=== PATIENT | female | born 1930 | race Caucasian/White ===

== ENCOUNTER 2017-09-22 19:05 | Inpatient (IN) | payer MEDICARE ==
--- NOTE | 2017-09-22 19:28 | ED Physician Chart ---
ED Chief Complaint/HPI - Patient Information Date Seen:: 09/22/17 Time Seen:: 19:20 Chief Complaint:: poor oral intake History of Present Illness:: Patient's had poor oral intake for the last 2 days. Patient has dementia so no further history is available. Allergies:: Allergies Allergy/AdvReac Type Severity Reaction Status Date / Time No Known Allergies Allergy Verified 09/22/17 19:21 Historian:: Patient, EMS Review:: Transfer documents Reviewed ED Review of Systems - Review of Systems General/Constitutional: No fever, No chills, Loss of appetite Skin: No skin lesions Head: No headache Eyes: No loss of vision, No diplopia ENT: No earache, No nasal drainage, No sore throat Neck: No neck pain, No swelling Cardio Vascular: No chest pain, No palpitations Pulmonary: No SOB GI: No nausea, No vomiting, No diarrhea G/U: No dysuria Musculoskeletal: No bone or joint pain Endocrine: No polyuria, No polydipsia Psychiatric: Prior psych history Hematopoietic: No bruising Allergic/Immuno: No urticaria Neurological: No syncope ED Past Medical History - Past Medical History Past Medical History: Dementia, Other ( status post urinary tract infection) Family History: Other (unavailable) Social History: Care Facility Surgical History: other (unavailable) Psychiatricy History: Bipolar, Dementia, Other (schizoaffective disorder) Medication: Reviewed Family Medical History - Family Member Mother History Unknown: Yes ED Physical Exam - Physical Examination General/Constitutional: Well-developed, well-nourished, Alert, No distress Head: Atraumatic Eyes: Lids, conjuctiva normal Skin: Nl inspection, No rash ENMT: External ears, nose nl, Nasal exam nl Other ENMT comments:: Poor dental hygiene Neck: No nuchal rigidity Respiratory: Nl effort/Exclusion, Clear to Auscultation, No Wheeze/Rhonchi/Rales Cardio Vascular: RRR, No murmur, gallop, rubs, NL S1 S2 GI: No tenderness/rebounding/guarding, No organomegaly, No hernia, Normal BS's : No CVA tenderness Extremities: No tenderness or effusion, Normal digits & nails Neuro/Psych: No focal deficits ED Labs/Radiology/EKG Results - Lab Results Results: Laboratory Results - last 24 hr 09/22/17 09/22/17 19:30 19:30 WBC 5.8 RBC 4.70 Hgb 12.1 Hct 37.7 L MCV 80.3 L MCH 25.7 L MCHC Differential 32.0 RDW 14.1 Plt Count 311 MPV 7.6 Neutrophils % 70.7 Lymphocytes % 22.4 Monocytes % 6.0 Eosinophils % 0.9 Basophils % 0.0 Sodium 138 Potassium 3.8 Chloride 102 Carbon Dioxide 27.1 Anion Gap 12.7 BUN 15 Creatinine 0.7 Est GFR ( Amer) TNP Est GFR (Non-Af Amer) TNP BUN/Creatinine Ratio 21.4 Glucose 104 Calcium 9.4 Magnesium 2.1 - EKG Interpretations Rate & Rhythm: normal sinus rhythm with a rate of 77 [place]: normal axis ED Septic Shock - . Is Septic Shock (SBP<90, OR Lactate>4 mmol\L) present?: No ED Reassessment (Disposition) - Reassessment Reassessment Condition:: Unchanged - Diagnosis Diagnosis:: Anorexia - Patient Disposition Admitted to:: Med/Surg Admitting Medical Physician:: Den Aceves Condition at Disposition:: Stable, Unchanged
[2017-09-22 19:38] LABS: % EOSINOPHILS 0.9 % (0.0-5.0); % LYMPHOCYTES 22.4 % (20.0-50.0); % NEUTROPHILS 70.7 % (40.0-80.0); EOSINOPHILE ABSOLUTE 0.1 Th/cmm (0.1-0.4); HEMATOCRIT 37.7 % (41.0-60); HEMOGLOBIN 12.1 gm/dL (12-16); LYMPHOCYTE ABSOLUTE 1.3 Th/cmm (1.5-3.0); MEAN CELL VOLUME 80.3 fl (81-100); MEAN CORPUSCULAR HEMOGLOBIN 25.7 pg (27.0-31.0); MEAN PLATELET VOLUME 7.6 fl; MONOCYTE ABSOLUTE 0.3 Th/cmm (0.3-1.0); NEUTROPHILE ABSOLUTE 4.1 Th/cmm (1.8-8.0); PLATELET COUNT 311 Th/cmm (150-400); RED CELL DISTRIBUTION WIDTH 14.1 % (11.5-20.0); WHITE BLOOD COUNT 5.8 Th/cmm (4.8-10.8)
[2017-09-22 19:54] LABS: ANION GAP 12.7 (7.0-16.0); BUN - UREA NITROGEN 15 mg/dL (7-25); CALCIUM SERUM 9.4 mg/dL (8.6-10.3); CARBON DIOXIDE 27.1 mEq/L (21.0-31.0); CHLORIDE 102 mEq/L (98-107); CREATININE - SERUM 0.7 mg/dL (0.6-1.2); GLUCOSE 104 mg/dL (70-105); MAGNESIUM 2.1 mg/dL (1.9-2.7); POTASSIUM SERUM 3.8 mEq/L (3.5-5.1); SODIUM SERUM 138 mEq/L (136-145)
[2017-09-22] MEDS: D5-0.45NS 1,000 ML IV SCH (21:30)
[2017-09-22] MEDS ORDERED: Magnesium Hydroxide (MOM) 30 mL UDC PO PRN (21:35)
[2017-09-22] MEDS ORDERED: Ipratropium Neb 0.5 mg/2.5 mL UD IH PRN (21:37)
[2017-09-22] MEDS ORDERED: Albuterol Nebulizer 2.5mg/3mL IH PRN (21:37)
[2017-09-22] MEDS ORDERED: guaiFENesin 200 MG/10 ML UDC PO PRN (21:37)
[2017-09-22] MEDS ORDERED: D5-0.45NS 1,000 ML IV SCH (21:45)
[2017-09-23 05:52] LABS: % BASOPHILS 0.1 % (0.0-2.0); % EOSINOPHILS 1.5 % (0.0-5.0); % LYMPHOCYTES 29.2 % (20.0-50.0); % MONOCYTES 7.8 % (2.0-10.0); % NEUTROPHILS 61.4 % (40.0-80.0); EOSINOPHILE ABSOLUTE 0.1 Th/cmm (0.1-0.4); HEMATOCRIT 35.1 % (41.0-60); HEMOGLOBIN 11.5 gm/dL (12-16); LYMPHOCYTE ABSOLUTE 1.6 Th/cmm (1.5-3.0); MEAN CELL VOLUME 79.9 fl (81-100); MEAN CORPUSCULAR HEMOGLOBIN 26.2 pg (27.0-31.0); MEAN CORPUSCULAR HGB CONC 32.8 pg (28.0-36.0); MEAN PLATELET VOLUME 7.5 fl; MONOCYTE ABSOLUTE 0.4 Th/cmm (0.3-1.0); NEUTROPHILE ABSOLUTE 3.4 Th/cmm (1.8-8.0); PLATELET COUNT 286 Th/cmm (150-400); RED CELL DISTRIBUTION WIDTH 13.9 % (11.5-20.0); WHITE BLOOD COUNT 5.5 Th/cmm (4.8-10.8)
[2017-09-23 06:01] VITALS: BP 119/72
[2017-09-23 06:01] LABS: ALB/GLOB RATIO 1.2 (1.0-1.8); ALBUMIN 3.4 gm/dL (3.7-5.3); ALKALINE PHOSPHATASE 78 U/L (34-104); ANION GAP 10.5 (7.0-16.0); BILIRUBIN,TOTAL 0.4 mg/dL (0.3-1.0); BUN - UREA NITROGEN 12 mg/dL (7-25); CARBON DIOXIDE 26.1 mEq/L (21.0-31.0); CHLORIDE 105 mEq/L (98-107); CREATININE - SERUM 0.5 mg/dL (0.6-1.2); GLUCOSE 108 mg/dL (70-105); MAGNESIUM 1.9 mg/dL (1.9-2.7); POTASSIUM SERUM 3.6 mEq/L (3.5-5.1); SGOT 15 U/L (13-39); SGPT/ALT 4 U/L (7-52); SODIUM SERUM 138 mEq/L (136-145); TOTAL PROTEIN,SERUM 6.2 gm/dL (6.0-8.3)
--- NOTE | 2017-09-23 08:06 | Diagnostic Imaging Report ---
CHEST X-RAY: AP view INDICATION: Cough COMPARISON: None FINDINGS: Chronic lung changes are noted. There is no focal consolidation or pleural effusions The heart is normal in size. Atherosclerosis is noted with tortuous aorta. Degenerative changes of the spine and shoulders are noted. IMPRESSION: Chronic lung changes with no focal consolidation identified. Atherosclerotic vascular disease.
[2017-09-23] MEDS ORDERED: Non-Formulary Item 1 EA (Cranberry Fruit Concentrate [Cranberry] 450 MG) PO SCH (09:00)
--- NOTE | 2017-09-23 12:25 | Internal Medicine Prog Note ---
Internal Medicine Subjective - Subjective Service Date: 09/23/17 ([id number] [facility] dictated) Internal Medicine Objective - Results Result Diagrams: 09/23/17 05:40 09/23/17 04:40 Recent Labs: Laboratory Last Values WBC 5.5 Th/cmm (4.8-10.8) 09/23/17 05:40 RBC 4.40 Mil/cmm (3.80-5.20) 09/23/17 05:40 Hgb 11.5 gm/dL (12-16) L 09/23/17 05:40 Hct 35.1 % (41.0-60) L 09/23/17 05:40 MCV 79.9 fl (81-100) L 09/23/17 05:40 MCH 26.2 pg (27.0-31.0) L 09/23/17 05:40 MCHC Differential 32.8 pg (28.0-36.0) 09/23/17 05:40 RDW 13.9 % (11.5-20.0) 09/23/17 05:40 Plt Count 286 Th/cmm (150-400) 09/23/17 05:40 MPV 7.5 fl 09/23/17 05:40 Neutrophils % 61.4 % (40.0-80.0) 09/23/17 05:40 Lymphocytes % 29.2 % (20.0-50.0) 09/23/17 05:40 Monocytes % 7.8 % (2.0-10.0) 09/23/17 05:40 Eosinophils % 1.5 % (0.0-5.0) 09/23/17 05:40 Basophils % 0.1 % (0.0-2.0) 09/23/17 05:40 Sodium 138 mEq/L (136-145) 09/23/17 04:40 Potassium 3.6 mEq/L (3.5-5.1) 09/23/17 04:40 Chloride 105 mEq/L (98-107) 09/23/17 04:40 Carbon Dioxide 26.1 mEq/L (21.0-31.0) 09/23/17 04:40 Anion Gap 10.5 (7.0-16.0) 09/23/17 04:40 BUN 12 mg/dL (7-25) 09/23/17 04:40 Creatinine 0.5 mg/dL (0.6-1.2) L 09/23/17 04:40 Est GFR ( Amer) TNP 09/23/17 04:40 Est GFR (Non-Af Amer) TNP 09/23/17 04:40 BUN/Creatinine Ratio 24.0 09/23/17 04:40 Glucose 108 mg/dL (70-105) H 09/23/17 04:40 Calcium 9.0 mg/dL (8.6-10.3) 09/23/17 04:40 Magnesium 1.9 mg/dL (1.9-2.7) 09/23/17 04:40 Total Bilirubin 0.4 mg/dL (0.3-1.0) 09/23/17 04:40 AST 15 U/L (13-39) 09/23/17 04:40 ALT 4 U/L (7-52) L 09/23/17 04:40 Alkaline Phosphatase 78 U/L (34-104) 09/23/17 04:40 B-Natriuretic Peptide 38.3 pg/mL (5.0-100.0) 09/23/17 04:40 Total Protein 6.2 gm/dL (6.0-8.3) 09/23/17 04:40 Albumin 3.4 gm/dL (3.7-5.3) L 09/23/17 04:40 Globulin 2.8 gm/dL 09/23/17 04:40 Albumin/Globulin Ratio 1.2 (1.0-1.8) 09/23/17 04:40 TSH 1.12 uIU/ml (0.34-5.60) 09/23/17 04:40 - Physical Exam Vitals and I&O: Vital Signs Temp 98.2 F 09/23/17 07:48 Pulse 86 09/23/17 07:48 Resp 18 09/23/17 07:48 BP 160/60 09/23/17 07:48 Pulse Ox 98 09/23/17 07:48 Intake & Output 09/22/17 09/23/17 09/23/17 18:59 06:59 18:59 Weight (lbs) 101 lb Other: # Voids 2 # Bowel Movements 0 Weight Source Bedscale Active Medications: Current Medications Acetaminophen (Tylenol) 650 mg PO Q4HR PRN PRN Reason: Pain Or Fever above 101 Stop: 11/21/17 21:36 Albuterol Sulfate (Albuterol 2.5mg/3ml Neb Ud) 2.5 mg IH Q2HR PRN PRN Reason: Shortness of Breath or Wheeze Stop: 11/21/17 21:36 Docusate Sodium (Colace) 100 mg PO BID [facility] Stop: 11/22/17 08:59 Last Admin: 09/23/17 09:24 Dose: Not Given Donepezil HCl (Aricept) 5 mg PO HS [facility] Stop: 11/22/17 20:59 Guaifenesin (Robitussin) 100 mg PO Q4H PRN PRN Reason: Cough or Congestion Stop: 11/21/17 21:36 Dextrose/Sodium Chloride (D5-0.45ns) 1,000 mls @ 80 mls/hr IV .[id number] [facility] Stop: 11/22/17 01:24 Last Admin: 09/22/17 21:30 Dose: 80 mls/hr Ipratropium [place] (Atrovent Neb 0.5mg/2.5ml) 0.5 mg IH Q2HR PRN PRN Reason: Shortness of Breath or Wheeze Stop: 11/21/17 21:36 Lorazepam (Ativan) 1 mg IV Q6H PRN; Protocol PRN Reason: Anxiety Stop: 11/21/17 21:36 Magnesium Hydroxide (Milk Of Magnesia) 30 ml PO DAILY PRN PRN Reason: Constipation Stop: 11/21/17 21:34 Megestrol Acetate (Megace) 400 mg PO BID [facility] PRN Reason: Protocol Stop: 11/22/17 08:59 Last Admin: 09/23/17 09:24 Dose: Not Given Internal Medicine Assmt/Plan - Assessment Assessment: Poor oral intake failure to thrive mild protein calorie malnutrition dementia bipolar psychosis
[2017-09-23] MEDS: D5-0.45NS 1,000 ML IV SCH (14:33)
--- NOTE | 2017-09-23 15:29 | History & Physical ---
ADMIT DATE: 09/23/2017 CHIEF COMPLAINT: Poor oral intake. HISTORY OF PRESENT ILLNESS: This is an 86-year-old female who is well known to me from [facility]. I was called on this patient due to poor oral intake for 2 days. The [facility] not [facility] the [facility] for further management. The patient is now admitted to the Med/Surg Unit. PAST MEDICAL HISTORY: Anorexia, dementia, bipolar, psychosis. SOCIAL HISTORY: The patient is a jail resident, requiring 24-hour nursing care. MEDICATIONS: Please see medication list. FAMILY HISTORY: Noncontributory. REVIEW OF SYSTEMS: Unable to obtain due to patient's mental status. The patient is nonverbal. PHYSICAL EXAMINATION: GENERAL: This is an elderly female, awake, appears anorexic, in no apparent distress. VITAL SIGNS: Temperature 98.2, heart rate 86, blood pressure 160/60, respiration 18, O2 98%. HEENT: Head; normocephalic, atraumatic. NECK: Supple. No mass. LUNGS: Clear bilaterally. HEART: Regular rate and rhythm. ABDOMEN: Soft, nontender. DIAGNOSTICS: The patient had a chest x-ray done and the impression is chronic lung changes with no focal consolidation identified atherosclerotic vascular changes. LABORATORY DATA: WBC 5.5, H and H 11.5 and 35.1, platelet of 286. Sodium 138, potassium 3.6, chloride 102, BUN 12, creatinine 0.5, albumin 3.4. ASSESSMENT: Poor oral intake, cachexic, failure to thrive, bipolar, dementia, psychosis, mild protein-calorie malnutrition. PLAN: We will admit patient to Med/Surg. We will get psych on the case and get a swallow evaluation done. We will collect UA. We will also do a calorie count. We will keep the patient on IV fluids for hydration. We will continue to monitor this patient. JOB# [id number]
[2017-09-23] MEDS ORDERED: VTE Chemical Prophylaxis Screen/Admission MC PRN (15:31)
[2017-09-24] MEDS: D5-0.45NS 1,000 ML IV SCH ×2 (03:09→15:06)
[2017-09-24 05:07] LABS: URINE MICROSCOPIC INDICATED? YES; URINE SOURCE CATH
[2017-09-24 05:14] LABS: URINE BILIRUBIN NEGATIVE (NEGATIVE); URINE BLOOD NEGATIVE (NEGATIVE); URINE GLUCOSE (UA) NEGATIVE (NEGATIVE); URINE KETONE NEGATIVE (NEGATIVE); URINE LEUKOCYTE ESTERASE NEGATIVE (NEGATIVE); URINE NITRATE NEGATIVE (NEGATIVE); URINE PH 6.5 (4.6 - 8.0); URINE PROTEIN NEGATIVE (NEGATIVE); URINE UROBILINOGEN 0.2 E.U./dL (0.2 - 1.0)
[2017-09-24 05:21] LABS: URINE CLARITY CLEAR (CLEAR); URINE COLOR YELLOW
[2017-09-24 05:22] LABS: URINE BACTERIA NONE SEEN /hpf (NONE SEEN); URINE EPITHELIAL CELLS NONE SEEN /lpf (FEW); URINE RBC NONE SEEN /hpf (0-5); URINE WBC NONE SEEN /hpf (0-5)
[2017-09-24 07:22] LABS: % EOSINOPHILS 2.9 % (0.0-5.0); % LYMPHOCYTES 24.6 % (20.0-50.0); % MONOCYTES 9.2 % (2.0-10.0); % NEUTROPHILS 63.3 % (40.0-80.0); EOSINOPHILE ABSOLUTE 0.1 Th/cmm (0.1-0.4); HEMATOCRIT 34.8 % (41.0-60); HEMOGLOBIN 11.4 gm/dL (12-16); LYMPHOCYTE ABSOLUTE 1.2 Th/cmm (1.5-3.0); MEAN CELL VOLUME 80.7 fl (81-100); MEAN CORPUSCULAR HEMOGLOBIN 26.4 pg (27.0-31.0); MEAN CORPUSCULAR HGB CONC 32.7 pg (28.0-36.0); MEAN PLATELET VOLUME 8.3 fl; MONOCYTE ABSOLUTE 0.5 Th/cmm (0.3-1.0); NEUTROPHILE ABSOLUTE 3.2 Th/cmm (1.8-8.0); PLATELET COUNT 273 Th/cmm (150-400); RED BLOOD COUNT 4.31 Mil/cmm (3.80-5.20); RED CELL DISTRIBUTION WIDTH 13.9 % (11.5-20.0)
[2017-09-24 07:41] LABS: ANION GAP 9.4 (7.0-16.0); BUN - UREA NITROGEN 11 mg/dL (7-25); CALCIUM SERUM 8.9 mg/dL (8.6-10.3); CARBON DIOXIDE 27.1 mEq/L (21.0-31.0); CHLORIDE 107 mEq/L (98-107); CREATININE - SERUM 0.6 mg/dL (0.6-1.2); GLUCOSE 96 mg/dL (70-105); POTASSIUM SERUM 3.5 mEq/L (3.5-5.1); SODIUM SERUM 140 mEq/L (136-145)
[2017-09-24 12:13] LABS: FOLIC ACID 16.3 ng/mL (>3.0)
--- NOTE | 2017-09-24 13:30 | Internal Medicine Prog Note ---
Internal Medicine Subjective - Subjective Service Date: 09/24/17 Patient seen and examined:: with staff Patient is:: awake, verbal Per staff patient has:: poor appetite, refusing care Internal Medicine Objective - Results Result Diagrams: 09/24/17 06:38 09/24/17 06:38 Recent Labs: Laboratory Last Values WBC 5.0 Th/cmm (4.8-10.8) 09/24/17 06:38 RBC 4.31 Mil/cmm (3.80-5.20) 09/24/17 06:38 Hgb 11.4 gm/dL (12-16) L 09/24/17 06:38 Hct 34.8 % (41.0-60) L 09/24/17 06:38 MCV 80.7 fl (81-100) L 09/24/17 06:38 MCH 26.4 pg (27.0-31.0) L 09/24/17 06:38 MCHC Differential 32.7 pg (28.0-36.0) 09/24/17 06:38 RDW 13.9 % (11.5-20.0) 09/24/17 06:38 Plt Count 273 Th/cmm (150-400) 09/24/17 06:38 MPV 8.3 fl 09/24/17 06:38 Neutrophils % 63.3 % (40.0-80.0) 09/24/17 06:38 Lymphocytes % 24.6 % (20.0-50.0) 09/24/17 06:38 Monocytes % 9.2 % (2.0-10.0) 09/24/17 06:38 Eosinophils % 2.9 % (0.0-5.0) 09/24/17 06:38 Basophils % 0.0 % (0.0-2.0) 09/24/17 06:38 Sodium 140 mEq/L (136-145) 09/24/17 06:38 Potassium 3.5 mEq/L (3.5-5.1) 09/24/17 06:38 Chloride 107 mEq/L (98-107) 09/24/17 06:38 Carbon Dioxide 27.1 mEq/L (21.0-31.0) 09/24/17 06:38 Anion Gap 9.4 (7.0-16.0) 09/24/17 06:38 BUN 11 mg/dL (7-25) 09/24/17 06:38 Creatinine 0.6 mg/dL (0.6-1.2) 09/24/17 06:38 Est GFR ( Amer) TNP 09/24/17 06:38 Est GFR (Non-Af Amer) TNP 09/24/17 06:38 BUN/Creatinine Ratio 18.3 09/24/17 06:38 Glucose 96 mg/dL (70-105) 09/24/17 06:38 Calcium 8.9 mg/dL (8.6-10.3) 09/24/17 06:38 Magnesium 1.9 mg/dL (1.9-2.7) 09/23/17 04:40 Total Bilirubin 0.4 mg/dL (0.3-1.0) 09/23/17 04:40 AST 15 U/L (13-39) 09/23/17 04:40 ALT 4 U/L (7-52) L 09/23/17 04:40 Alkaline Phosphatase 78 U/L (34-104) 09/23/17 04:40 B-Natriuretic Peptide 38.3 pg/mL (5.0-100.0) 09/23/17 04:40 Total Protein 6.2 gm/dL (6.0-8.3) 09/23/17 04:40 Albumin 3.4 gm/dL (3.7-5.3) L 09/23/17 04:40 Globulin 2.8 gm/dL 09/23/17 04:40 Albumin/Globulin Ratio 1.2 (1.0-1.8) 09/23/17 04:40 Vitamin B12 707 pg/mL (232-1245) 09/23/17 04:40 Folic Acid 16.3 ng/mL (>3.0) 09/23/17 04:40 TSH 1.12 uIU/ml (0.34-5.60) 09/23/17 04:40 Urine Source CATH 09/24/17 04:40 Urine Color YELLOW 09/24/17 04:40 Urine Clarity CLEAR (CLEAR) 09/24/17 04:40 Urine pH 6.5 (4.6 - 8.0) 09/24/17 04:40 Ur Specific [place] <= 1.005 (1.005-1.030) 09/24/17 04:40 Urine Protein NEGATIVE mg/dL (NEGATIVE) 09/24/17 04:40 Urine Glucose (UA) NEGATIVE mg/dL (NEGATIVE) 09/24/17 04:40 Urine Ketones NEGATIVE mg/dL (NEGATIVE) 09/24/17 04:40 Urine Blood NEGATIVE (NEGATIVE) 09/24/17 04:40 Urine Nitrate NEGATIVE (NEGATIVE) 09/24/17 04:40 Urine Bilirubin NEGATIVE (NEGATIVE) 09/24/17 04:40 Urine Urobilinogen 0.2 E.U./dL (0.2 - 1.0) 09/24/17 04:40 Ur Leukocyte Esterase NEGATIVE (NEGATIVE) 09/24/17 04:40 Urine RBC NONE SEEN /hpf (0-5) 09/24/17 04:40 Urine WBC NONE SEEN /hpf (0-5) 09/24/17 04:40 Ur Epithelial Cells NONE SEEN /lpf (FEW) 09/24/17 04:40 Urine Bacteria NONE SEEN /hpf (NONE SEEN) 09/24/17 04:40 - Physical Exam Vitals and I&O: Vital Signs Temp 98.5 F 09/24/17 08:00 Pulse 68 09/24/17 08:00 Resp 18 09/24/17 08:00 BP 119/56 09/24/17 08:00 Pulse Ox 96 09/24/17 08:00 Intake & Output 09/23/17 09/24/17 09/24/17 18:59 06:59 18:59 Intake Total 1550 1000 Balance 1550 1000 Weight (lbs) 101 lb 1.6 oz Intake: Intake, IV Amount 1000 1000 D5-0.45NS 1,000 ml @ 80 1000 1000 mls/hr IV .[id number] [facility] Rx #:[id number] Oral 550 Other: # Voids 3 # Bowel Movements 1 Stool Characteristics Soft Weight Source Bedscale Active Medications: Current Medications Acetaminophen (Tylenol) 650 mg PO Q4HR PRN PRN Reason: Pain Or Fever above 101 Stop: 11/21/17 21:36 Albuterol Sulfate (Albuterol 2.5mg/3ml Neb Ud) 2.5 mg IH Q2HR PRN PRN Reason: Shortness of Breath or Wheeze Stop: 11/21/17 21:36 Docusate Sodium (Colace) 100 mg PO BID [facility] Stop: 11/22/17 08:59 Last Admin: 09/24/17 09:36 Dose: Not Given Donepezil HCl (Aricept) 5 mg PO HS [facility] Stop: 11/22/17 20:59 Last Admin: 09/23/17 22:40 Dose: Not Given Guaifenesin (Robitussin) 100 mg PO Q4H PRN PRN Reason: Cough or Congestion Stop: 11/21/17 21:36 Heparin Sodium (Porcine) (Heparin) 5,000 units SUBQ Q12H [facility] Stop: 11/22/17 20:59 Last Admin: 09/24/17 09:36 Dose: Not Given Dextrose/Sodium Chloride (D5-0.45ns) 1,000 mls @ 80 mls/hr IV .[id number] [facility] Stop: 11/22/17 01:24 Last Admin: 09/24/17 03:09 Dose: 80 mls/hr Ipratropium [place] (Atrovent Neb 0.5mg/2.5ml) 0.5 mg IH Q2HR PRN PRN Reason: Shortness of Breath or Wheeze Stop: 11/21/17 21:36 Lorazepam (Ativan) 1 mg IV Q6H PRN; Protocol PRN Reason: Anxiety Stop: 11/21/17 21:36 Magnesium Hydroxide (Milk Of Magnesia) 30 ml PO DAILY PRN PRN Reason: Constipation Stop: 11/21/17 21:34 Megestrol Acetate (Megace) 400 mg PO BID [facility] PRN Reason: Protocol Stop: 11/22/17 08:59 Last Admin: 09/24/17 09:36 Dose: Not Given Miscellaneous (Vte Chemical Prophylaxis Screen/ Admission) 1 ea [facility] PRN PRN PRN Reason: PROTOCOL Stop: 11/22/17 15:30 General: weak, alert HEENT: NC/AT, PERRLA Neck: Supple Cardiovascular: RRR Abdomen: soft, non-tender, non-distended, positive bowel sound Internal Medicine Assmt/Plan - Assessment Assessment: Poor oral intake failure to thrive mild protein calorie malnutrition dementia bipolar psychosis - Plan Plan: continue calorie count ivf for hydration dc to geropsych if ok with psych cbc/bmp in am continue current plan of care Nutritional Asmnt/Malnutr-PDOC - Dietary Evaluation Malnutrition Findings (Please click <Entered> for more info): Nutritional Asmnt/Malnutrition Start: 09/23/17 15: 54 Text: Status: Complete Freq: Document 09/23/17 15:55 CHIQUIABDI (Rec: 09/23/17 16:24 LCABDI [email or web address]) Nutritional Asmnt/Malnutrition Patient General Information Nutritional Screening High Risk Diagnosis poor PO intake Pertinent Medical Hx/Surgical Hx dementia, s/p UTI, bipolar, schizoaffective disorder Subjective Information Consult received for FTT. Per H&P, pt had poor oral intake x 2 days. Pt seen lying in bed at time of visit, confused and hard of healing, not able to interview. Pt passed swallow eval this morning. ST recommended regular diet, soft food, cut into pieces. Pt prefer Peanut butter sandwich, arabic fries, grilled cheese, and shakes noted. Pt apperaed skinny. Pt is on calorie cont noted. Current Diet Order/ Nutrition Support regular, soft cut into pieces, boost daily Pertinent Medications D5-0.45ns, colace, megace Pertinent Labs /6 Cr 0.5, glucose 108 Nutritional Hx/Data Height 5 ft Height (Calculated Centimeters) 152.4 Current Weight (lbs) 101 lb Weight (Calculated Kilograms) 45.8 Weight (Calculated Grams) 20359.8 [place] Body Weight 100 Body Mass Index (BMI) 19.7 Weight Status Approriate GI Symptoms GI Symptoms None Last BM none Difficult in: None Skin Integrity/Comment: intact Estimated Nutritional Goals BEE in Kcals: Using Current wt Calories/Kcals/Kg 25-30 Kcals Calculated 9398-6522 Protein: Using Current wt Protein g/k-1.2 Protein Calculated 46-55 Fluid: ml 1150-1380ml (1ml/kcal) Nutritional Problem 1. Problem Problem inadequate food intake Etiology possible poor appetite Signs/Symptoms: poor oral intake x 2 days Malnutrition Alert Protein-Calorie Malnutrition N/A Is there a minimum of two criteria No selected? Query Text:Check all the applicable criteria. A minimum of two criteria are recommended for diagnosis of either severe or non-severe malnutrition. Intervention/Recommendation Comments 1. Continue with current diet as ordered. Provide food that pt likes and cut into pieces. 2. Monitor PO intake, wt, labs and skin integrity 3. F/U as high risk in 2-3 days, 09/25-09/26 Expected Outcomes/Goals Expected Outcomes/Goals 1. PO intake to meet at least 75% of nutritional needs. 2. Wt stability, skin to remain intact, labs to approach WNL.
--- NOTE | 2017-09-24 15:08 | History & Physical ---
ADMIT DATE: 09/24/2017 PHYSICIAN REQUESTING CONSULTATION: Dr. Aceves. REASON FOR CONSULTATION: Psychosis. HISTORY OF PRESENT ILLNESS: This patient is an 86-year-old woman, resident of [facility]. Information obtained by directly interviewing the patient as well as talking to the staff members who were attending the patient. The patient is reported to have been refusing to comply with the treatment and is stating that God has told her that she should not be on any medications until she dies. The patient is also refusing to eat. Coping skills at this time are noted to be very poor. The patient is not able to contract for safety. The patient's sleep is noted to be poor. Appetite is also noted to be very poor. PAST PSYCHIATRIC HISTORY: Details are not known. PAST MEDICAL AND PSYCHIATRIC HISTORY: The patient is reported to have been treated for bipolar disorder in the past, but currently not on medications. SUBSTANCE ABUSE HISTORY: None. PHYSICAL OR SEXUAL ABUSE HISTORY: Details are not known. MENTAL EXAMINATION: The patient is an 86-year-old woman, thin built, superficially cooperative. Eye contact is poor. Mood irritable. Affect is constricted. Insight and judgment at this time are noted to very much impaired. Impulse control seems to be limited. The patient has been reluctant to take any medications and is stating that God has told her that she should not be taking the medication until she dies. The patient is also refusing to eat. Coping skills are noted to be very poor, short and skilled nursing noted to be impaired. The patient is alert and awake and short and daytime babysitter noted to be impaired. Attention span and concentration are noted to be poor at this time. DIAGNOSES: At the time of the admission. 1a. Psychotic disorder, not otherwise specified. 1b. Dementia and behavioral change secondary trait. IMMEDIATE TREATMENT PLAN. The patient is going to be observed on inpatient unit, provided with supportive psychotherapy. The patient is going to be closely monitored. Once medically cleared, the patient is going to be considered for transfer to the psychiatric unit. JOB# [id number]
[2017-09-24 15:45] LABS: A1C % 6.1 % (4.0-6.0)
[2017-09-25] MEDS: D5-0.45NS 1,000 ML IV SCH (03:34)
[2017-09-25 06:59] LABS: % BASOPHILS 0.7 % (0.0-2.0); % EOSINOPHILS 3.8 % (0.0-5.0); % LYMPHOCYTES 36.5 % (20.0-50.0); % MONOCYTES 8.9 % (2.0-10.0); % NEUTROPHILS 50.1 % (40.0-80.0); EOSINOPHILE ABSOLUTE 0.2 Th/cmm (0.1-0.4); HEMATOCRIT 31.8 % (41.0-60); HEMOGLOBIN 10.3 gm/dL (12-16); LYMPHOCYTE ABSOLUTE 1.8 Th/cmm (1.5-3.0); MEAN CORPUSCULAR HEMOGLOBIN 26.2 pg (27.0-31.0); MEAN CORPUSCULAR HGB CONC 32.3 pg (28.0-36.0); MEAN PLATELET VOLUME 7.5 fl; MONOCYTE ABSOLUTE 0.4 Th/cmm (0.3-1.0); NEUTROPHILE ABSOLUTE 2.4 Th/cmm (1.8-8.0); PLATELET COUNT 257 Th/cmm (150-400); RED BLOOD COUNT 3.92 Mil/cmm (3.80-5.20); RED CELL DISTRIBUTION WIDTH 14.4 % (11.5-20.0); WHITE BLOOD COUNT 4.8 Th/cmm (4.8-10.8)
[2017-09-25 07:31] LABS: BUN - UREA NITROGEN 9 mg/dL (7-25); CALCIUM SERUM 8.5 mg/dL (8.6-10.3); CARBON DIOXIDE 27.6 mEq/L (21.0-31.0); CHLORIDE 108 mEq/L (98-107); CREATININE - SERUM 0.6 mg/dL (0.6-1.2); GLUCOSE 88 mg/dL (70-105); POTASSIUM SERUM 3.6 mEq/L (3.5-5.1); SODIUM SERUM 142 mEq/L (136-145)
== END 2017-09-25 14:10 | DRG 641 ==
LOC: ER 19:05 → MSI 20:15
PROVIDERS: ADMIT Internal Medicine; ATTEND Internal Medicine
DX: R62.7 Adult failure to thrive (principal); E44.1 Mild protein-calorie malnutrition; F03.91 Unspecified dementia, unspecified severity, with behavioral disturbance; Z68.1 Body mass index [BMI] 19.9 or less, adult; F31.9 Bipolar disorder, unspecified; F25.9 Schizoaffective disorder, unspecified; F29 Unspecified psychosis not due to a substance or known physiological condition; Z87.440 Personal history of urinary (tract) infections
CPT/HCPCS: 36415-UA; 71045-TC; 80048-TC; 80053-TC; 81001-TC; 82607-90; 82746-90; 83036-90; 83735-TC; 83880-TC; 84443-TC; 85025-TC; 93005; 94760; J1644; X3401; Z7610

== ENCOUNTER 2017-09-25 14:16 | Inpatient (IN) | payer MEDICARE ==
[2017-09-25 15:18] VITALS: BP 107/50
[2017-09-25] MEDS ORDERED: Maalox 30 mL Cup PO PRN (15:18)
[2017-09-25] MEDS ORDERED: Magnesium Hydroxide (MOM) 30 mL UDC PO PRN ×2 (15:18→15:57)
--- NOTE | 2017-09-25 17:23 | Progress Notes ---
DATE: 09/25/2017 SUBJECTIVE: Staff was spoken to. The patient is interviewed. Mood is noted to be depressed. Affect is constricted. The patient's insight and judgment are very much impaired. Impulse control is noted to be limited. Coping skills are noted to be limited. The patient is stating that she is following the God's orders and she is not going to be taking the medication or the food. The patient is very selective. The patient's staff members have been trying to encourage the patient to eat with a great difficulty. She had some pudding. ASSESSMENT: The patient is still psychotic and demented. PLAN: To continue the patient with the supportive therapy and followup. JOB# [id number]
[2017-09-26] MEDS: Multivitamin Tab PO SCH (09:06)
--- NOTE | 2017-09-26 13:18 | Internal Medicine Prog Note ---
Internal Medicine Subjective - Subjective Service Date: 09/26/17 Patient seen and examined:: with staff Patient is:: awake, verbal, confused Per staff patient has:: tolerating meds Internal Medicine Objective - Physical Exam Vitals and I&O: Vital Signs Temp 99.8 F 09/26/17 05:25 Pulse 81 09/26/17 05:25 Resp 20 09/26/17 05:25 BP 120/65 09/26/17 05:25 Pulse Ox 93 09/25/17 20:30 Intake & Output 09/25/17 09/26/17 09/26/17 18:59 06:59 18:59 Intake Total 420 240 Output Total 2 Balance 418 240 Weight (lbs) 101 lb 4.8 oz Intake: Oral 420 240 Output: Urine 2 Other: # Voids 2 Weight Source Bedscale Active Medications: Current Medications Acetaminophen (Tylenol) 650 mg PO Q4HR PRN PRN Reason: Mild Pain / Temp above 100 Stop: 11/24/17 15:17 Acetaminophen (Tylenol) 650 mg PO Q4HR PRN PRN Reason: Pain or Fever >101 Stop: 11/25/17 12:19 Al Hydrox/Mg Hydrox/Simethicone (Maalox) 30 ml PO Q4HR PRN PRN Reason: GI DISTRESS Stop: 11/24/17 15:17 Docusate Sodium (Colace) 100 mg PO BID [facility] Stop: 11/24/17 16:59 Last Admin: 09/26/17 09:06 Dose: 100 mg Donepezil HCl (Aricept) 5 mg PO HS [facility] Stop: 11/24/17 20:59 Last Admin: 09/25/17 22:00 Dose: Not Given Lorazepam (Ativan) 0.5 mg PO Q4HR PRN; Protocol PRN Reason: Agitation Stop: 10/25/17 15:17 Magnesium Hydroxide (Milk Of Magnesia) 30 ml PO DAILY PRN PRN Reason: Constipation Stop: 11/24/17 15:56 Multivitamins/Vitamin C (Theragran) 1 tab PO DAILY [facility] Stop: 11/25/17 08:59 Last Admin: 09/26/17 09:06 Dose: 1 tab Quetiapine Fumarate (Seroquel) 12.5 mg PO HS [facility] PRN Reason: Protocol Stop: 11/24/17 20:59 Last Admin: 09/25/17 22:00 Dose: Not Given Zolpidem Tartrate (Ambien) 5 mg PO HS PRN PRN Reason: Insomnia Stop: 11/24/17 15:17 General: weak, alert HEENT: NC/AT, PERRLA Neck: Supple Lungs: CTAB Cardiovascular: RRR, Normal S1, Normal S2, without murmur Internal Medicine Assmt/Plan - Assessment Assessment: mild protein calorie malnutrition dementia bipolar psychosis - Plan Plan: monitor i+o fall precautions continue current plan of care
--- NOTE | 2017-09-27 02:10 | Progress Notes ---
DATE: 09/26/2017 SUBJECTIVE: Staff was spoken to. The patient is interviewed. Mood is noted to be depressed. Affect is constricted. The patient is very paranoid and is stating that she is told by the God that she should not be taking any medications. The patient's intake is noted to be very poor. The patient has pain. The patient has no insight into her illness. Coping skills are noted to be extremely poor. Sleep and appetite are also noted to be very poor. ASSESSMENT: The patient is still grossly psychotic. PLAN: To continue the patient with the supportive therapy, encouraged the patient to verbalize the concerns. The patient is not ready to be discharged because of her psychosis. [facility]# [id number]
[2017-09-27] MEDS: Multivitamin Tab PO SCH (09:34)
--- NOTE | 2017-09-27 13:14 | Internal Medicine Prog Note ---
Internal Medicine Subjective - Subjective Service Date: 09/27/17 Patient is:: awake, verbal, confused Per staff patient has:: tolerating meds Internal Medicine Objective - Physical Exam Vitals and I&O: Vital Signs Temp 99.1 F 09/26/17 20:00 Pulse 78 09/26/17 20:00 Resp 20 09/26/17 20:00 BP 101/47 09/26/17 20:00 Pulse Ox 97 09/26/17 20:00 Intake & Output 09/26/17 09/27/17 09/27/17 18:59 06:59 18:59 Intake Total 650 Balance 650 Intake: Oral 650 Other: # Voids 3 Active Medications: Current Medications Acetaminophen (Tylenol) 650 mg PO Q4HR PRN PRN Reason: Pain or Fever >101 Stop: 11/25/17 12:19 Al Hydrox/Mg Hydrox/Simethicone (Maalox) 30 ml PO Q4HR PRN PRN Reason: GI DISTRESS Stop: 11/24/17 15:17 Docusate Sodium (Colace) 100 mg PO BID CHANDA Stop: 11/24/17 16:59 Last Admin: 09/27/17 09:35 Dose: 100 mg Donepezil HCl (Aricept) 5 mg PO HS CHANDA Stop: 11/24/17 20:59 Last Admin: 09/26/17 21:07 Dose: 5 mg Lorazepam (Ativan) 0.5 mg PO Q4HR PRN; Protocol PRN Reason: Agitation Stop: 10/25/17 15:17 Magnesium Hydroxide (Milk Of Magnesia) 30 ml PO DAILY PRN PRN Reason: Constipation Stop: 11/24/17 15:56 Multivitamins/Vitamin C (Theragran) 1 tab PO DAILY CHANDA Stop: 11/25/17 08:59 Last Admin: 09/27/17 09:34 Dose: 1 tab Quetiapine Fumarate (Seroquel) 25 mg PO HS CHANDA PRN Reason: Protocol Stop: 11/26/17 20:59 Zolpidem Tartrate (Ambien) 5 mg PO HS PRN PRN Reason: Insomnia Stop: 11/24/17 15:17 Last Admin: 09/26/17 21:08 Dose: 5 mg General: weak, alert HEENT: NC/AT, PERRLA Neck: Supple Lungs: CTAB Cardiovascular: RRR, Normal S1, Normal S2, without murmur Internal Medicine Assmt/Plan - Assessment Assessment: mild protein calorie malnutrition dementia bipolar psychosis - Plan Plan: monitor i+o fall precautions continue current plan of care
--- NOTE | 2017-09-27 21:35 | Progress Notes ---
DATE: 09/27/2017 SUBJECTIVE: Staff was spoken to. The patient is interviewed. Mood is noted to be irritable. Affect is constricted. The patient is still very paranoid and is stating that she should not be on any medications as per the God's order. The patient is stating that she is having difficult time to cope with the stress. Continues to be paranoid. Insight and judgment at this time are noted to be much impaired. Impulse control seems to be limited. The patient's short and long-term memory also noted to be poor. ASSESSMENT: The patient is still very psychotic and impulsive and religiously preoccupied. PLAN: To continue the patient with the supportive therapy and followup. [facility]# [id number]
--- NOTE | 2017-09-28 02:27 | Consultation ---
DATE OF CONSULTATION: 09/27/2017 REQUESTING PHYSICIAN: Dequan Joseph MD. TYPE OF CONSULTATION: Psychology. HISTORY OF PRESENT ILLNESS: The following is by review of the medical record and by the patient's self report. The patient is an 86-year-old female who is a resident of [facility]. The patient was admitted to the medical floor originally and was transferred to the geropsychiatric unit once she was medically stabilized. The patient had been refusing to comply with treatment and was stating that god had told her that she did not need to take medication before she dies. The patient also had been refusing food. The patient's coping skills are extremely poor. The patient is unable to contract for safety. The patient has been continually refusing medications and resisting care. PAST MEDICAL HISTORY: Please see history and physical by Dr. Aceves. PAST PSYCHIATRIC HISTORY: Records indicate a history for bipolar disorder. The patient is currently not on any medications. SUBSTANCE ABUSE HISTORY: None reported. PSYCHOSOCIAL HISTORY: The patient is a resident of [facility] in [place]. The patient did not answer questions about family history or family relationships. She did not answer questions about occupational history or educational history or taoist affiliation. The patient did not answer questions about history of physical or sexual abuse or any legal problems. MENTAL STATUS EXAMINATION: The patient appears to be older than her stated age. The patient's attitude is guarded and suspicious. Eye contact is poor. Mood is irritable. Affect is constricted. The patient's thought process is tangential with perseveration on religiosity i.e., that god told her she does not have to take medication. The patient is also refusing to eat. The patient denied suicidal ideation, plan or intention. However, passive suicidal ideation should be noted here regarding treatment refusal. The patient did not admit to a wish to . However, this needs to be noted that there should be further evaluation. The patient's impulse control is poor. The patient's behavior on the unit has been resistant to care and refusing medication. Sensorium is alert and oriented to place and self only. Concentration is poor. Coping strategies and skills are poor. The patient could not sustain focus and attention. The patient did not participate in the memory assessment. Memory is possibly impaired on all three dimensions. The patient did not participate in the interpretation of proverbs at this time. Insight is impaired. Judgment is impaired. DIAGNOSTIC IMPRESSION: AXIS I: 1. Psychotic disorder, not otherwise specified. 2. Dementia with behavioral disturbance. AXIS II: Deferred. AXIS III: Please see history and physical by Dr. Aceves. TREATMENT PLAN: The patient had been medically cleared from the medical floor and transferred to the geropsychiatric unit. We will provide motivational enhancement for the patient to become compliant and stay compliant with all aspects of her care and treatment. The patient is guarded and suspicious and paranoid ideation is present. There is a possible hyper-taoist delusion present as well. This needs further evaluation. The patient is obviously devout in her reyes-based beliefs. The patient has no insight into her illness. We will provide coping skills and coping strategies for phase of life issues. We will continue to try to motivate the patient towards accepting treatment. We will continue to provide supportive therapy. We will provide the opportunity also for the patient to be able to contract for safety, which would include no self-harm as a result of refusing food, medication and medical treatment. The treatment plan will be discussed with the staff as well as the attending physician. Thank you, Dr. Joseph, for this consult and the opportunity to participate with you in this patient's care. JOB# [id number] NETTE
[2017-09-28] MEDS: Multivitamin Tab PO SCH (08:23)
--- NOTE | 2017-09-29 07:29 | Progress Notes ---
DATE: 09/28/2017 PSYCHIATRIC PROGRESS NOTE SUBJECTIVE: Staff was spoken to. The patient is interviewed. Mood is noted to be irritable. Affect is constricted. Insight and judgment at this time are noted to be still impaired. Impulse control is noted to be poor. Coping skills are also noted to be very poor. The patient has been having difficult time to cope with the stress. The patient is being closely monitored at this time. The patient is currently on 25 mg of Seroquel and has been able to tolerate the medications. No side effects to medications are noted. The patient's son has called and mentioned that the patient has been diagnosed with bipolar disorder and schizophrenia in the past. The patient has a difficult time to accepting the medication. ASSESSMENT: The patient is still psychotic. PLAN: To continue the patient with supportive therapy and follow up. JOB# [id number]
[2017-09-29] MEDS: Multivitamin Tab PO SCH (08:22)
--- NOTE | 2017-09-29 13:09 | Internal Medicine Prog Note ---
Internal Medicine Subjective - Subjective Service Date: 09/29/17 Patient is:: awake, verbal, confused Per staff patient has:: tolerating meds Internal Medicine Objective - Physical Exam Vitals and I&O: Vital Signs Temp 98.6 F 09/28/17 14:00 Pulse 71 09/28/17 14:00 Resp 18 09/28/17 14:00 BP 107/67 09/28/17 14:00 Pulse Ox 99 09/28/17 14:00 Intake & Output 09/28/17 09/29/17 09/29/17 18:59 06:59 18:59 Intake Total 240 Balance 240 Intake: Oral 240 Other: # Voids 2 Active Medications: Current Medications Acetaminophen (Tylenol) 650 mg PO Q4HR PRN PRN Reason: Pain or Fever >101 Stop: 11/25/17 12:19 Al Hydrox/Mg Hydrox/Simethicone (Maalox) 30 ml PO Q4HR PRN PRN Reason: GI DISTRESS Stop: 11/24/17 15:17 Docusate Sodium (Colace) 100 mg PO BID CHANDA Stop: 11/24/17 16:59 Last Admin: 09/29/17 08:22 Dose: 100 mg Donepezil HCl (Aricept) 5 mg PO HS CHANDA Stop: 11/24/17 20:59 Last Admin: 09/28/17 21:27 Dose: 5 mg Lorazepam (Ativan) 0.5 mg PO Q4HR PRN; Protocol PRN Reason: Agitation Stop: 10/25/17 15:17 Magnesium Hydroxide (Milk Of Magnesia) 30 ml PO DAILY PRN PRN Reason: Constipation Stop: 11/24/17 15:56 Multivitamins/Vitamin C (Theragran) 1 tab PO DAILY CHANDA Stop: 11/25/17 08:59 Last Admin: 09/29/17 08:22 Dose: 1 tab Quetiapine Fumarate (Seroquel) 25 mg PO HS CHANDA PRN Reason: Protocol Stop: 11/26/17 20:59 Last Admin: 09/28/17 21:27 Dose: 25 mg Zolpidem Tartrate (Ambien) 5 mg PO HS PRN PRN Reason: Insomnia Stop: 11/24/17 15:17 Last Admin: 09/26/17 21:08 Dose: 5 mg General: weak, alert HEENT: NC/AT, PERRLA Neck: Supple Lungs: CTAB Cardiovascular: RRR, Normal S1, Normal S2, without murmur Internal Medicine Assmt/Plan - Assessment Assessment: mild protein calorie malnutrition dementia bipolar psychosis - Plan Plan: monitor i+o fall precautions continue current plan of care
--- NOTE | 2017-09-30 00:02 | Progress Notes ---
DATE: 09/29/2017 SUBJECTIVE: Staff was spoken to. The patient is interviewed. Mood is noted to be irritable. Affect is constricted. Coping skills are noted to be still poor. The patient is still very paranoid and is reluctant to comply with the medications. The patient has been having difficult time to cope with the stress. No side effects to the medications are noted. ASSESSMENT: The patient is still grossly psychotic. PLAN: To continue the patient with the supportive therapy. Encourage the patient to verbalize the concerns rather than to act out. JOB# [id number]
[2017-09-30] MEDS: Multivitamin Tab PO SCH (08:56)
--- NOTE | 2017-09-30 13:33 | Internal Medicine Prog Note ---
Internal Medicine Subjective - Subjective Service Date: 09/30/17 Patient is:: awake, verbal, confused Per staff patient has:: tolerating meds Internal Medicine Objective - Physical Exam Vitals and I&O: Vital Signs Temp 98.1 F 09/30/17 05:19 Pulse 88 09/30/17 05:19 Resp 20 09/30/17 05:19 BP 129/81 09/30/17 05:19 Pulse Ox 97 09/30/17 05:19 Intake & Output 09/29/17 09/30/17 09/30/17 18:59 06:59 18:59 Intake Total 960 480 Balance 960 480 Intake: Oral 960 480 Other: # Voids 3 2 # Bowel Movements 0 Active Medications: Current Medications Acetaminophen (Tylenol) 650 mg PO Q4HR PRN PRN Reason: Pain or Fever >101 Stop: 11/25/17 12:19 Al Hydrox/Mg Hydrox/Simethicone (Maalox) 30 ml PO Q4HR PRN PRN Reason: GI DISTRESS Stop: 11/24/17 15:17 Docusate Sodium (Colace) 100 mg PO BID CHANDA Stop: 11/24/17 16:59 Last Admin: 09/30/17 08:56 Dose: 100 mg Donepezil HCl (Aricept) 5 mg PO HS CHANDA Stop: 11/24/17 20:59 Last Admin: 09/29/17 21:08 Dose: 5 mg Lorazepam (Ativan) 0.5 mg PO Q4HR PRN; Protocol PRN Reason: Agitation Stop: 10/25/17 15:17 Magnesium Hydroxide (Milk Of Magnesia) 30 ml PO DAILY PRN PRN Reason: Constipation Stop: 11/24/17 15:56 Multivitamins/Vitamin C (Theragran) 1 tab PO DAILY CHANDA Stop: 11/25/17 08:59 Last Admin: 09/30/17 08:56 Dose: 1 tab Quetiapine Fumarate (Seroquel) 25 mg PO HS CHANDA PRN Reason: Protocol Stop: 11/26/17 20:59 Last Admin: 09/29/17 21:08 Dose: 25 mg Zolpidem Tartrate (Ambien) 5 mg PO HS PRN PRN Reason: Insomnia Stop: 11/24/17 15:17 Last Admin: 09/26/17 21:08 Dose: 5 mg General: weak, alert HEENT: NC/AT, PERRLA Neck: Supple Lungs: CTAB Cardiovascular: RRR, Normal S1, Normal S2, without murmur Internal Medicine Assmt/Plan - Assessment Assessment: mild protein calorie malnutrition dementia bipolar psychosis - Plan Plan: monitor i+o fall precautions continue current plan of care
--- NOTE | 2017-10-01 01:44 | Progress Notes ---
DATE: 09/30/2017 SUBJECTIVE: Staff was spoken to. The patient is interviewed. Mood is irritable. Affect is constricted. Insight and judgment at this time are noted to be still impaired. Impulse control is noted to be limited. The patient is still responding to internal stimuli. The patient is currently on Seroquel and has been able to tolerate the medications. No side effects to the medications are noted. ASSESSMENT: The patient is still psychotic and confused and demented. PLAN: To continue the patient with the supportive therapy. I encouraged the patient to verbalize the concerns rather than to act out. Please note that the patient is not ready to be discharged to a lower level of care yet. JOB# [id number]
[2017-10-01] MEDS: Multivitamin Tab PO SCH (09:48)
--- NOTE | 2017-10-01 18:45 | Internal Medicine Prog Note ---
Internal Medicine Subjective - Subjective Patient is:: awake, verbal, interactive, confused Per staff patient has:: no adverse event, no episodes of fall, tolerating meds Internal Medicine Objective - Physical Exam Vitals and I&O: Vital Signs Temp 99.2 F 10/01/17 15:45 Pulse 88 10/01/17 15:45 Resp 18 10/01/17 15:45 BP 108/56 10/01/17 15:45 Pulse Ox 98 10/01/17 15:45 Intake & Output 09/30/17 10/01/17 10/01/17 18:59 06:59 18:59 Intake Total 480 375 Balance 480 375 Intake: Oral 480 375 Other: # Voids 2 2 # Bowel Movements 1 Active Medications: Current Medications Acetaminophen (Tylenol) 650 mg PO Q4HR PRN PRN Reason: Pain or Fever >101 Stop: 11/25/17 12:19 Al Hydrox/Mg Hydrox/Simethicone (Maalox) 30 ml PO Q4HR PRN PRN Reason: GI DISTRESS Stop: 11/24/17 15:17 Docusate Sodium (Colace) 100 mg PO BID CHANDA Stop: 11/24/17 16:59 Last Admin: 10/01/17 16:09 Dose: 100 mg Donepezil HCl (Aricept) 5 mg PO HS CHANDA Stop: 11/24/17 20:59 Last Admin: 09/30/17 20:35 Dose: 5 mg Lorazepam (Ativan) 0.5 mg PO Q4HR PRN; Protocol PRN Reason: Agitation Stop: 10/25/17 15:17 Magnesium Hydroxide (Milk Of Magnesia) 30 ml PO DAILY PRN PRN Reason: Constipation Stop: 11/24/17 15:56 Multivitamins/Vitamin C (Theragran) 1 tab PO DAILY CHANDA Stop: 11/25/17 08:59 Last Admin: 10/01/17 09:48 Dose: 1 tab Quetiapine Fumarate (Seroquel) 25 mg PO HS CHANDA PRN Reason: Protocol Stop: 11/26/17 20:59 Last Admin: 09/30/17 20:38 Dose: 25 mg Zolpidem Tartrate (Ambien) 5 mg PO HS PRN PRN Reason: Insomnia Stop: 11/24/17 15:17 Last Admin: 09/26/17 21:08 Dose: 5 mg General: weak, alert HEENT: NC/AT, PERRLA Neck: Supple Lungs: CTAB Cardiovascular: RRR, Normal S1, Normal S2, without murmur Extremities: excoriation Neurological: no change, disorganized Internal Medicine Assmt/Plan - Assessment Assessment: - Assessment Assessment: mild protein calorie malnutrition dementia bipolar psychosis - Plan Plan: monitor i+o fall precautions continue current plan of care - Plan Plan: corey perez Nutritional Asmnt/Malnutr-PDOC - Dietary Evaluation Malnutrition Findings (Please click <Entered> for more info): Nutritional Asmnt/Malnutrition Start: 09/30/17 16: 58 Text: Status: Complete Freq: Document 09/30/17 16:58 LCNARINDER (Rec: 09/30/17 17:03 NARINDERG [email or web address]) Nutritional Asmnt/Malnutrition Patient General Information Nutritional Screening Moderate Risk Diagnosis psychosis Pertinent Medical Hx/Surgical Hx anorexia, dementia, bipolar, psychosis Subjective Information Pt seen resting in bed at time of visit, non-verbal noted. Per EMR, PO intake 0-100%, avg 75%. Current Diet Order/ Nutrition Support regular Pertinent Medications theragran, seroquel Pertinent Labs no labs Nutritional Hx/Data Height 1.52 m Height (Calculated Centimeters) 152.4 Current Weight (lbs) 45.813 kg Weight (Calculated Kilograms) 45.8 Weight (Calculated Grams) 33473.8 [place] Body Weight 100 Body Mass Index (BMI) 19.7 Weight Status Approriate GI Symptoms GI Symptoms None Last BM 4/10 x 3 Difficult in: None Skin Integrity/Comment: dryness Estimated Nutritional Goals BEE in Kcals: Using Current wt Calories/Kcals/Kg 25-30 Kcals Calculated 3929-4375 Protein: Using Current wt Protein g/k-1.2 Protein Calculated 46-55 Fluid: ml 1150-1380ml (1m/kcal) Nutritional Problem No current Nutrition Prob Problem N/A Malnutrition Alert Protein-Calorie Malnutrition N/A Is there a minimum of two criteria No selected? Query Text:Check all the applicable criteria. A minimum of two criteria are recommended for diagnosis of either severe or non-severe malnutrition. Intervention/Recommendation Comments 1. Continue with current diet as ordered. 2. Monitor PO intake, wt, labs and skin integrity 3. F/U as low risk in 7 days, 10/07 Expected Outcomes/Goals Expected Outcomes/Goals 1. PO intake to meet at least 75% of nutritional needs. 2. Wt stability, skin to remain intact, labs to approach WNL.
--- NOTE | 2017-10-01 18:57 | Progress Notes ---
DATE: 10/01/2017 PSYCHIATRIC PROGRESS NOTE SUBJECTIVE: Staff was spoken to. The patient is interviewed. Mood is noted to be irritable. Affect is constricted. Insight and judgment noted to be still impaired. Impulse control is noted to be limited. Continues to have paranoia. The patient has been denying that she should be on any medication. The patient's coping skills are noted to be poor at this time. ASSESSMENT: The patient is still psychotic. PLAN: To continue the patient with the supportive therapy, encouraged the patient to verbalize the concerns rather than to act out. JOB# [id number]
[2017-10-02] MEDS: Multivitamin Tab PO SCH (09:26)
--- NOTE | 2017-10-02 13:52 | Internal Medicine Prog Note ---
Internal Medicine Subjective - Subjective Patient seen and examined:: with staff, chart reviewed Patient is:: awake, verbal, interactive, confused Per staff patient has:: no adverse event, no episodes of fall, tolerating meds Internal Medicine Objective - Physical Exam Vitals and I&O: Vital Signs Temp 99.2 F 10/01/17 15:45 Pulse 88 10/01/17 15:45 Resp 18 10/01/17 15:45 BP 108/56 10/01/17 15:45 Pulse Ox 98 10/01/17 15:45 Intake & Output 10/01/17 10/02/17 10/02/17 18:59 06:59 18:59 Intake Total 375 Balance 375 Intake: Oral 375 Other: # Voids 2 # Bowel Movements 1 Active Medications: Current Medications Acetaminophen (Tylenol) 650 mg PO Q4HR PRN PRN Reason: Pain or Fever >101 Stop: 11/25/17 12:19 Al Hydrox/Mg Hydrox/Simethicone (Maalox) 30 ml PO Q4HR PRN PRN Reason: GI DISTRESS Stop: 11/24/17 15:17 Docusate Sodium (Colace) 100 mg PO BID CHANDA Stop: 11/24/17 16:59 Last Admin: 10/02/17 09:26 Dose: 100 mg Donepezil HCl (Aricept) 5 mg PO HS CHANDA Stop: 11/24/17 20:59 Last Admin: 10/01/17 21:26 Dose: 5 mg Lorazepam (Ativan) 0.5 mg PO Q4HR PRN; Protocol PRN Reason: Agitation Stop: 10/25/17 15:17 Last Admin: 10/02/17 01:08 Dose: 0.5 mg Magnesium Hydroxide (Milk Of Magnesia) 30 ml PO DAILY PRN PRN Reason: Constipation Stop: 11/24/17 15:56 Multivitamins/Vitamin C (Theragran) 1 tab PO DAILY CHANDA Stop: 11/25/17 08:59 Last Admin: 10/02/17 09:26 Dose: 1 tab Quetiapine Fumarate (Seroquel) 25 mg PO HS CHANDA PRN Reason: Protocol Stop: 11/26/17 20:59 Last Admin: 10/01/17 21:27 Dose: 25 mg Zolpidem Tartrate (Ambien) 5 mg PO HS PRN PRN Reason: Insomnia Stop: 11/24/17 15:17 Last Admin: 10/01/17 21:27 Dose: 5 mg General: weak, alert HEENT: NC/AT, PERRLA Neck: Supple Lungs: CTAB Cardiovascular: RRR, Normal S1, Normal S2, without murmur Extremities: excoriation Neurological: no change, disorganized Internal Medicine Assmt/Plan - Assessment Assessment: - Assessment Assessment: mild protein calorie malnutrition dementia bipolar psychosis - Plan Plan: monitor i+o fall precautions continue current plan of care - Plan Plan: corey perez Nutritional Asmnt/Malnutr-PDOC - Dietary Evaluation Malnutrition Findings (Please click <Entered> for more info): Nutritional Asmnt/Malnutrition Start: 09/30/17 16: 58 Text: Status: Complete Freq: Document 09/30/17 16:58 NARINDERG (Rec: 09/30/17 17:03 LCNARINDERG [email or web address]) Nutritional Asmnt/Malnutrition Patient General Information Nutritional Screening Moderate Risk Diagnosis psychosis Pertinent Medical Hx/Surgical Hx anorexia, dementia, bipolar, psychosis Subjective Information Pt seen resting in bed at time of visit, non-verbal noted. Per EMR, PO intake 0-100%, avg 75%. Current Diet Order/ Nutrition Support regular Pertinent Medications theragran, seroquel Pertinent Labs no labs Nutritional Hx/Data Height 1.52 m Height (Calculated Centimeters) 152.4 Current Weight (lbs) 45.813 kg Weight (Calculated Kilograms) 45.8 Weight (Calculated Grams) 36717.8 [place] Body Weight 100 Body Mass Index (BMI) 19.7 Weight Status Approriate GI Symptoms GI Symptoms None Last BM 4/10 x 3 Difficult in: None Skin Integrity/Comment: dryness Estimated Nutritional Goals BEE in Kcals: Using Current wt Calories/Kcals/Kg 25-30 Kcals Calculated 2202-0918 Protein: Using Current wt Protein g/k-1.2 Protein Calculated 46-55 Fluid: ml 1150-1380ml (1m/kcal) Nutritional Problem No current Nutrition Prob Problem N/A Malnutrition Alert Protein-Calorie Malnutrition N/A Is there a minimum of two criteria No selected? Query Text:Check all the applicable criteria. A minimum of two criteria are recommended for diagnosis of either severe or non-severe malnutrition. Intervention/Recommendation Comments 1. Continue with current diet as ordered. 2. Monitor PO intake, wt, labs and skin integrity 3. F/U as low risk in 7 days, 10/07 Expected Outcomes/Goals Expected Outcomes/Goals 1. PO intake to meet at least 75% of nutritional needs. 2. Wt stability, skin to remain intact, labs to approach WNL.
--- NOTE | 2017-10-03 05:42 | Progress Notes ---
DATE: 10/02/2017 SUBJECTIVE: Staff was spoken to. The patient is interviewed. Mood is noted to be less irritable. The patient is still confused. The patient is currently on 25 mg of the Seroquel at bedtime and has been able to tolerate the medications. No side effects to the medications are noted. The patient; however, has been confused and as the medication has to be given with the food to have her accepted, but the patient continues to be religiously preoccupied. ASSESSMENT: The patient is still psychotic, paranoid, and confused. PLAN: To continue the patient with the current medications and follow up with the supportive therapy. JOB# [id number]
[2017-10-03] MEDS: Multivitamin Tab PO SCH (09:44)
--- NOTE | 2017-10-03 10:57 | Internal Medicine Prog Note ---
Internal Medicine Subjective - Subjective Service Date: 10/03/17 Patient is:: awake, verbal, interactive, confused Per staff patient has:: no adverse event, no episodes of fall, tolerating meds Internal Medicine Objective - Physical Exam Vitals and I&O: Vital Signs Temp 99.0 F 10/03/17 06:07 Pulse 89 10/03/17 06:07 Resp 20 10/03/17 06:07 BP 131/71 10/03/17 06:07 Pulse Ox 99 10/03/17 06:07 Intake & Output 10/02/17 10/03/17 10/03/17 18:59 06:59 18:59 Intake Total 500 Balance 500 Intake: Oral 500 Other: # Voids 3 # Bowel Movements 1 Active Medications: Current Medications Acetaminophen (Tylenol) 650 mg PO Q4HR PRN PRN Reason: Pain or Fever >101 Stop: 11/25/17 12:19 Al Hydrox/Mg Hydrox/Simethicone (Maalox) 30 ml PO Q4HR PRN PRN Reason: GI DISTRESS Stop: 11/24/17 15:17 Docusate Sodium (Colace) 100 mg PO BID CHANDA Stop: 11/24/17 16:59 Last Admin: 10/03/17 09:44 Dose: 100 mg Donepezil HCl (Aricept) 5 mg PO HS CHANDA Stop: 11/24/17 20:59 Last Admin: 10/02/17 21:06 Dose: 5 mg Lorazepam (Ativan) 0.5 mg PO Q4HR PRN; Protocol PRN Reason: Agitation Stop: 10/25/17 15:17 Last Admin: 10/02/17 01:08 Dose: 0.5 mg Magnesium Hydroxide (Milk Of Magnesia) 30 ml PO DAILY PRN PRN Reason: Constipation Stop: 11/24/17 15:56 Multivitamins/Vitamin C (Theragran) 1 tab PO DAILY CHANDA Stop: 11/25/17 08:59 Last Admin: 10/03/17 09:44 Dose: 1 tab Quetiapine Fumarate (Seroquel) 25 mg PO HS CHANDA PRN Reason: Protocol Stop: 11/26/17 20:59 Last Admin: 10/02/17 21:06 Dose: 25 mg Zolpidem Tartrate (Ambien) 5 mg PO HS PRN PRN Reason: Insomnia Stop: 11/24/17 15:17 Last Admin: 10/02/17 21:06 Dose: 5 mg General: weak, alert HEENT: NC/AT, PERRLA Neck: Supple Lungs: CTAB Cardiovascular: RRR, Normal S1, Normal S2, without murmur Extremities: excoriation Neurological: no change, disorganized Internal Medicine Assmt/Plan - Assessment Assessment: mild protein calorie malnutrition dementia bipolar psychosis - Plan Plan: monitor i+o fall precautions continue current plan of care Nutritional Asmnt/Malnutr-PDOC - Dietary Evaluation Malnutrition Findings (Please click <Entered> for more info): Nutritional Asmnt/Malnutrition Start: 09/30/17 16: 58 Text: Status: Complete Freq: Document 09/30/17 16:58 NARINDER (Rec: 09/30/17 17:03 NARINDER [email or web address]) Nutritional Asmnt/Malnutrition Patient General Information Nutritional Screening Moderate Risk Diagnosis psychosis Pertinent Medical Hx/Surgical Hx anorexia, dementia, bipolar, psychosis Subjective Information Pt seen resting in bed at time of visit, non-verbal noted. Per EMR, PO intake 0-100%, avg 75%. Current Diet Order/ Nutrition Support regular Pertinent Medications theragran, seroquel Pertinent Labs no labs Nutritional Hx/Data Height 5 ft Height (Calculated Centimeters) 152.4 Current Weight (lbs) 101 lb Weight (Calculated Kilograms) 45.8 Weight (Calculated Grams) 54353.8 [place] Body Weight 100 Body Mass Index (BMI) 19.7 Weight Status Approriate GI Symptoms GI Symptoms None Last BM 4/10 x 3 Difficult in: None Skin Integrity/Comment: dryness Estimated Nutritional Goals BEE in Kcals: Using Current wt Calories/Kcals/Kg 25-30 Kcals Calculated 2366-1285 Protein: Using Current wt Protein g/k-1.2 Protein Calculated 46-55 Fluid: ml 1150-1380ml (1m/kcal) Nutritional Problem No current Nutrition Prob Problem N/A Malnutrition Alert Protein-Calorie Malnutrition N/A Is there a minimum of two criteria No selected? Query Text:Check all the applicable criteria. A minimum of two criteria are recommended for diagnosis of either severe or non-severe malnutrition. Intervention/Recommendation Comments 1. Continue with current diet as ordered. 2. Monitor PO intake, wt, labs and skin integrity 3. F/U as low risk in 7 days, 10/07 Expected Outcomes/Goals Expected Outcomes/Goals 1. PO intake to meet at least 75% of nutritional needs. 2. Wt stability, skin to remain intact, labs to approach WNL.
== END 2017-10-03 15:25 | DRG 884 ==
LOC: GERO2 14:16
PROVIDERS: ADMIT Psychiatry & Neurology Psychiatry; ATTEND Psychiatry & Neurology Psychiatry
DX: F03.91 Unspecified dementia, unspecified severity, with behavioral disturbance (principal); E44.1 Mild protein-calorie malnutrition; F29 Unspecified psychosis not due to a substance or known physiological condition; Z66 Do not resuscitate; R62.7 Adult failure to thrive; F31.9 Bipolar disorder, unspecified
CPT/HCPCS: G0410; Z7610